=== PATIENT | female | born 1950 | race Caucasian/White ===

== ENCOUNTER 2022-05-17 01:21 | Day surgery (SDC) | payer MEDICARE, SELFPAY ==
[2022-04-29 09:50] VITALS: BMI 26.8
[2022-05-06 14:41] VITALS: BMI 26.8
--- NOTE | 2022-05-16 11:59 | WPDANESEPPF ---
Anes - Initial Pre Proc Eval Procedure: Operation Date: 05/17/22 07:30 Proposed Procedures p Screening Colonoscopy - Chad Cook MD Date/Time: 05/16/22 11:59 Surgeon: Chad Cook MD Pre Op Diagnosis: neoplasm screening Patient Data Age: 72 Gender: F Height: 1.57 m Weight: 66.5 kg Allergies Allergy/AdvReac Type Severity Reaction Status Date / Time No Known Allergies Allergy Verified 05/17/22 06:23 Home Medications Medication Instructions Recorded Confirmed Type alendronate 70 mg tablet 70 mg PO DAILY 04/29/22 05/17/22 History aspirin 81 mg capsule 81 mg PO DAILY 04/29/22 05/17/22 History cetirizine 10 mg capsule (Zyrtec) 10 mg PO PRN PRN Allergy Symptoms 04/29/22 05/17/22 History chromium picolinate 200 mcg capsule 200 mcg PO DAILY 04/29/22 05/17/22 History coenzyme [id number]-[id number] E 100 mg-100 100 cap PO DAILY 04/29/22 05/17/22 History unit capsule fexofenadine 60 mg capsule 60 mg PO PRN PRN Allergy Symptoms 04/29/22 05/17/22 History indapamide 1.25 mg tablet 1.25 mg PO DAILY 04/29/22 05/17/22 History lisinopril 2.5 mg tablet 2.5 mg PO DAILY 04/29/22 05/17/22 History metformin 500 mg tablet,extended 500 mg PO DAILY 04/29/22 05/17/22 History release 24 hr omeprazole 20 mg capsule,delayed 20 cap PO PRN PRN Cough 04/29/22 05/17/22 History release rosuvastatin 10 mg tablet 10 mg PO DAILY 04/29/22 05/17/22 History tumeric 100 mg-marguerite 150 mg-olive 1 cap PO DAILY 04/29/22 05/17/22 History 50 mg-oreg 150 mg-caprylate capsule vitamin B complex (B 1 tablet PO DAILY 04/29/22 05/17/22 History Complex-Vitamin B12 tablet) Patient hx anesthesia problems: none Family hx anesthesia problems: none Results Review: All pre-operative results and documents have been reviewed as part of the pre-operative evaluation. [facility] Past Medical History Medical History (Updated 05/16/22 @ 12:03 by Brendan Mclean DO) Diabetes type 2, controlled GERD (gastroesophageal reflux disease) Hyperlipidemia Hypertension QIAN (obstructive sleep apnea) Surgical History Surgical History (Updated 05/16/22 @ 12:03 by Brendan Mclean DO) History of hysterectomy Social History Social History Smoking status: Never smoker Alcohol intake: current Alcohol use details: with cooking and on occasion a couple times a year Substance use: never Substance use type: does not use Living arrangements: with family Spiritual care concerns: No Anes - Eval Final PreProcedure Day of Procedure 05/16/22 11:59 Patient weight: overweight Heart: regular rate and rhythm Lungs: clear to auscultation Airway: Mallampati scale class II Neurological: alert and oriented Last oral intake: >/= 8 hours ASA classification: III Emergent: no Anesthetic plan: proceed Anesthesia type and monitoring: general GIVS and standard monitoring Results Review: All pre-operative results and documents have been reviewed as part of the pre-operative evaluation. Informed Consent: The patient's anesthetic plan and its attendant risks and benefits were discussed with the patient/family/POA. Questions were solicited and answers provided to the satisfaction of the patient/family/POA.
[2022-05-17 06:24] VITALS: BP 144/70; PULSE 84; RESP 16; TEMP 36.4; O2SAT 100
[2022-05-17 06:43] LABS: Glucose Point of Care 140 mg/dl (65-105)
[2022-05-17] MEDS: LACTATED RINGERS 1,000 ML 150 ML IV CONT (07:02)
--- NOTE | 2022-05-17 07:28 | WPDGICN ---
Assessment and Plan Assessment and plan (1) Encounter for screening colonoscopy: Code(s): Z12.11 - Encounter for screening for malignant neoplasm of colon Status: Acute Assessment and Plan: Patient presents for screening colonoscopy. Further recommendations will be given after endoscopy. Patient known to have irritable bowel syndrome. High-fiber diet advised. Further recommendations may be given after endoscopy. GI Consult Note Consult date/time: 05/17/22 07:28 Reason for consult: Neoplasia screening. HPI: Sierra Leblanc is a 72 year old female Presents for screening colonoscopy. Patient's current weight appetite bowel movements are normal. She states that she did have a colonoscopy by Dr. Salguero in 2012. She reports no bleeding. Denies abdominal pain. In the past has been told she has IBS. She gets loose stools with anxiety. Patient has a very distant history of H pylori more than 20 years ago. Patient presents today for screening surveillance colonoscopy. Her family history is noncontributory. Review of Systems Review of Systems: review of systems noncontributory. [facility] Past Medical History Medical History (Updated 05/17/22 @ 07:30 by Chad Cook MD) Diabetes type 2, controlled GERD (gastroesophageal reflux disease) Hyperlipidemia Hypertension QIAN (obstructive sleep apnea) Surgical History Surgical History (Updated 05/16/22 @ 12:03 by Brendan Mclean DO) History of hysterectomy Social History Social History Smoking status: Never smoker Alcohol intake: current Alcohol use details: with cooking and on occasion a couple times a year Substance use: never Substance use type: does not use Living arrangements: with family Spiritual care concerns: No Meds Home Medications and Allergies Home Medications Medication Instructions Recorded Confirmed Type alendronate 70 mg tablet 70 mg PO DAILY 04/29/22 05/17/22 History aspirin 81 mg capsule 81 mg PO DAILY 04/29/22 05/17/22 History cetirizine 10 mg capsule (Zyrtec) 10 mg PO PRN PRN Allergy Symptoms 04/29/22 05/17/22 History chromium picolinate 200 mcg capsule 200 mcg PO DAILY 04/29/22 05/17/22 History coenzyme [id number] E 100 mg-100 100 cap PO DAILY 04/29/22 05/17/22 History unit capsule fexofenadine 60 mg capsule 60 mg PO PRN PRN Allergy Symptoms 04/29/22 05/17/22 History indapamide 1.25 mg tablet 1.25 mg PO DAILY 04/29/22 05/17/22 History lisinopril 2.5 mg tablet 2.5 mg PO DAILY 04/29/22 05/17/22 History metformin 500 mg tablet,extended 500 mg PO DAILY 04/29/22 05/17/22 History release 24 hr omeprazole 20 mg capsule,delayed 20 cap PO PRN PRN Cough 04/29/22 05/17/22 History release rosuvastatin 10 mg tablet 10 mg PO DAILY 04/29/22 05/17/22 History tumeric 100 mg-marguerite 150 mg-olive 1 cap PO DAILY 04/29/22 05/17/22 History 50 mg-oreg 150 mg-caprylate capsule vitamin B complex (B 1 tablet PO DAILY 04/29/22 05/17/22 History Complex-Vitamin B12 tablet) Allergies Allergy/AdvReac Type Severity Reaction Status Date / Time No Known Allergies Allergy Verified 05/17/22 06:23 Vital Signs Vital Signs - 24 hr 05/17/22 06:24 Temperature 97.5 F L Pulse Rate 84 Respiratory Rate 16 Blood Pressure 144/70 H Pulse Oximetry 100 Oxygen Delivery Room Air Exam Narrative: Physical exam reveals patient to be alert. Vital signs stable. HEENT exam is unremarkable. Patient is anicteric. Lungs are clear to auscultation and percussion. Heart is without murmur or extra sounds. Abdominal exam bowel sounds are present soft nontender with no organomegaly. Digital external rectal exam is normal.
[2022-05-17] MEDS: SIMETHICONE ORAL SUSPENSION 20 MG/0.3 ML 30 ML BOTTLE 0.6 ML IRRIGATION (07:42)
[2022-05-17 07:48] VITALS: BP 133/42; PULSE 82; RESP 19; O2SAT 100
[2022-05-17 07:57] VITALS: BP 115/58; PULSE 73; RESP 20; O2SAT 100
[2022-05-17 08:08] VITALS: BP 116/63; PULSE 73; RESP 12; O2SAT 100
== END 2022-05-17 08:24 | disposition home or self-care (01) ==
PROVIDERS: PCP Internal Medicine; Visit Provider Internal Medicine Gastroenterology
PROC: 0DJD8ZZ Inspection of Lower Intestinal Tract, Via Natural or Artificial Opening Endoscopic (ICD-10-PCS; CPT 45378; principal; 2022-05-17 07:30)
DX: Z12.11 Encounter for screening for malignant neoplasm of colon (principal); K64.8 Other hemorrhoids; G47.33 Obstructive sleep apnea (adult) (pediatric); I10 Essential (primary) hypertension; E78.5 Hyperlipidemia, unspecified; K21.9 Gastro-esophageal reflux disease without esophagitis; E11.9 Type 2 diabetes mellitus without complications; Z79.82 Long term (current) use of aspirin; Z79.84 Long term (current) use of oral hypoglycemic drugs
CPT/HCPCS: G0121; 82948; J2704; J7120